=== PATIENT | male | born 1930 | race Caucasian/White ===

== ENCOUNTER 2016-10-25 14:54 | Inpatient (IN) | payer OTHER ==
--- NOTE | 2016-10-25 16:09 | RAD ---
INDICATION: Short of breath COMPARISON: February 27, 2016 TECHNIQUE: An AP portable view obtained at 1438 hours is submitted. FINDINGS: Bones/Soft Tissues: There are no acute bony findings. There is sternotomy. There is a left-sided cardiac pacemaker Cardiomediastinal: The heart is normal in size. The central pulmonary vessels and interstitium are prominent compatible with interstitial congestion. There may be a component of chronic change. Lungs: There are no infiltrates. Pleura: There are no pleural effusions. Other: None IMPRESSION: MILD TO MODERATE VASCULAR CONGESTIVE FINDINGS. NO ACUTE CHANGE.
[2016-10-25 16:46] LABS: Hematocrit 33 % (42-52); Hemoglobin 10.2 g/dl (14.0-18.0); Mean Corpuscular HGB Conc 31 g/dl (31-36); Mean Corpuscular Hemoglobin 24 pg (27-31); Mean Corpuscular Volume 75 fL (80-94); Mean Platelet Volume 8 um3 (7.4-10.4); Red Blood Count 4.33 10^6/ul (4.0-5.4); Red Cell Distribution Width 17 % (10.5-15); White Blood Count 23.6 10^3/ul (3.5-10.8)
[2016-10-25 16:49] LABS: Comments Flag Yes
[2016-10-25 16:50] LABS: Add Diff/Slide Review? Slide Review Added
[2016-10-25 16:51] LABS: Albumin 3.4 g/dL (3.2-5.2); BUN/Creatinine Ratio 25.7 (8-20); Calcium 8.7 mg/dL (8.6-10.3); EGFR African American 82.7 (>60); EGFR Non-African American 64.3 (>60); Globulin 3.2 g/dL (2-4); Total Protein 6.6 g/dL (6.4-8.9)
[2016-10-25 16:54] LABS: Troponin I 0.05 ng/mL (<0.04)
[2016-10-25] MEDS ORDERED: Iohexol 350* (CONTRAST) 500 ML MDV IV ONE (17:05)
--- NOTE | 2016-10-25 17:38 | RAD ---
INDICATION: Chest pain. Short of breath. Evaluate for pulmonary embolus. COMPARISON: CT chest August 21, 2016 TECHNIQUE: Axial source images were obtained from the thoracic inlet to the hemidiaphragms following administration of 80 mL cc Omnipaque 350. CT angiographic technique was utilized. Coronal and sagittal reconstructed images were acquired. CHEST FINDINGS: Neck/thyroid: The visualized neck to include the thyroid appear normal. Chest wall: There are no acute abnormalities of the bony thorax or chest wall. There is sternotomy. There is a left-sided cardiac pacemaker There is no supraclavicular, infraclavicular, or axillary lymphadenopathy. Lungs : There are chronic interstitial changes. There are new, superimposed acute bilateral infiltrates most prominent in the right lung base. There are no endobronchial lesions. Cardiomediastinal structures: There is no CT evidence of acute pulmonary embolic disease. The heart is normal in size. There is no pericardial effusion. There is no evidence of aortic aneurysm or dissection. There is no mediastinal or hilar adenopathy. The esophagus appears normal. Pleura : There is a moderate sized left-sided pleural effusion which appears new. Other: There is a large hiatal hernia. There are numerous hepatic cysts as previously described. IMPRESSION: 1. No CT evidence of acute pulmonary embolic disease. 2. New, bilateral, interstitial infiltrates. Superimposed chronic interstitial changes. 3. New moderate sized left-sided effusion 4. Large hiatal hernia 5. Cardiac pacemaker with sternotomy. 6. Hepatic cysts.
[2016-10-25] MEDS ORDERED: cefTRIAXone(*) 1 GM in NS 0.9% 50 ML* 50 ML IVPB ONE (18:06)
[2016-10-25] MEDS ORDERED: Azithromycin IV(*) 500 MG in NS 0.9% 250 ML* 250 ML IVPB ONE (18:06)
[2016-10-25] MEDS ORDERED: Acetaminophen TAB* 325 MG PO ONE (18:08)
[2016-10-25] MEDS ORDERED: Aspirin TAB* 325 MG PO ONE (18:09)
[2016-10-25] MEDS: Mometasone/Formoter 200/5 MDI INH SCH (21:00)
[2016-10-25] MEDS: Memantine TAB* 10 MG PO SCH (23:11)
[2016-10-25] MEDS: Heparin VIAL(*) 5000 UNITS/ML VIAL (FIVE THOUSAND) SUBCUT SCH (23:17)
[2016-10-25] MEDS: NS 0.9% 1000 ML* 1,000 ML IV SCH (23:24)
--- NOTE | 2016-10-26 03:07 | HP ---
HISTORY AND PHYSICAL: DATE OF ADMISSION: 10/25/16 PRIMARY CARE PROVIDER: Vinicio Butler MD ATTENDING PHYSICIAN: Matteo Castro MD *(dictated by Christal Silverio NP ). CHIEF COMPLAINT: Cough, shortness of breath and low oxygen saturations. HISTORY OF PRESENT ILLNESS: Mr. Merino is an 86-year-old male with past medical history significant for atrial fibrillation, hypertension, coronary artery disease, hypothyroidism, aortic stenosis, status post bioprosthetic aortic valve replacement, cerebrovascular accident, chronic obstructive pulmonary disease, dementia and idiopathic pulmonary fibrosis. He came to the ER today after his reports coming home defined him short of breath, shaking and with low oxygen saturations. She reports that over the last 10 days, he has had a cough. She states that he has intermittently had a cough off and on, and it had gotten better after being placed on prednisone in September and as they tapered down, he again developed a cough and was placed back on prednisone. According to the patient's , Hina, he was shaking, complaining of shortness of breath when she got home for lunch today. She found that his oxygen saturation was 75% on 3 L, his normal home O2 level when he was coughing and when he was not coughing, his oxygen saturation was 85%. She reports that he has felt warmth to the touch, but she has not checked his fever at home. He has reported chills, denies chest discomfort, nausea, vomiting diarrhea, but also reports burping and indigestion. The patient follows closely with Dr. Caputo due to his pulmonary fibrosis. The patient's also reports red tinged sputum. They were recently at a family gathering. They do not believe that there were any sick contacts at that time. As far as the patient's is aware, he has not gained any weight, though she does not check his weight frequently at home. Due to the concern, the patient was brought to the emergency room for further evaluation of his symptoms. While in the emergency room, the patient received ceftriaxone and azithromycin normal. The patient had labs that were significant for white blood cell count of 23.6, BUN is 28. He has a slightly elevated troponin at 0.05. BNP of 374. The patient had a chest x-ray showing [id number] vascular congestion, congestive findings. No acute change. He had a chest CTA showing no CT evidence for an acute pulmonary embolic disease. New bilateral interstitial infiltrates superimposed over chronic interstitial changes. New moderate sized left-sided effusion. Large hiatal hernia. PAST MEDICAL HISTORY: 1. Atrial fibrillation. 2. Hypertension. 3. CAD. 4. Hypothyroidism. 5. Aortic stenosis. 6. Cerebrovascular accident. 7. COPD. 8. Dementia. 9. Idiopathic pulmonary fibrosis. PAST SURGICAL HISTORY: 1. Status post aortic valve replacement with bioprosthetic valve with a 2- vessel CABG. 2. Hernia repair. 3. Total hip arthroplasty. 4. Dual-chamber pacemaker insertion. HOME MEDICATIONS: Include; 1. Spiriva 1 capsule inhalation daily. 2. Testosterone 40.5 mg topical daily. 3. Sertraline 50 mg oral daily. 4. Exelon 6 mg oral twice daily. 5. Prednisone 10 mg oral daily. 6. Prilosec 20 mg oral daily. 7. Metoprolol succinate 12.5 mg oral daily. 8. Namenda 10 mg oral twice daily. 9. Loratadine 10 mg oral daily as needed for allergy symptoms. 10. Levothyroxine 100 mcg oral every morning. 11. Ibuprofen 400 mg oral twice daily as needed for pain. 12. Advair Diskus 250/50 one puff inhalation twice daily. 13. Jess 180 mg oral daily as needed for allergy symptoms. 14. Digoxin 0.125 mg oral daily. 15. CoQ10, 200 mg oral daily. 16. Aspirin 81 mg oral daily. ALLERGIES: RAMIPRIL and ARICEPT. FAMILY HISTORY: The patient's mother had a history of cerebrovascular accident. The patient's father had a history of COPD. He denied any family history of coronary artery disease or diabetes mellitus. The patient's brother had a history of testicular cancer. SOCIAL HISTORY: The patient is a former smoker, he quit smoking cigarettes in 1974. At that time, he had smoked since he was 15 years old. The patient then went to smoking cigars occasionally. He has not smoked in a few years. The patient drinks a glass of wine daily. Denies recreational drug use. He is a retired professor. He is and lives with his , Hina Beltran, who will be his surrogate decision maker in the event that he is unable to make decisions for himself. REVIEW OF SYSTEMS: The patient has a documented fever in the emergency room of 102.6. He has had no significant weight changes. Denies nocturnal dyspnea or orthopnea. I performed a 14-point of review of systems. All the pertinent positives and negatives are mentioned in the history of present illness. The remaining review of systems are negative. PHYSICAL EXAMINATION GENERAL APPEARANCE: The patient is alert, pleasant, and appears to be in no acute distress. VITAL SIGNS: Temperature 102.6, heart rate 97, respiratory rate 18, O2 sat 97% on 3 L via nasal cannula, blood pressure 128/63. HEENT: Normocephalic, atraumatic. Pupils are equal and reactive to light. Extraocular movements are intact. NECK: Supple. There is no lymphadenopathy noted. RESPIRATORY: There is no accessory muscle use. The lungs have some rhonchi bilateral. There is no wheezing. There is no accessory muscle use. CARDIOVASCULAR: Regular rate and rhythm. S1 and S2 present. Tachycardic. ABDOMEN: Soft, nontender and nondistended. There are bowel sounds present x4. EXTREMITIES: There is no lower extremity edema. DP and PT pulses are 2+ and symmetric. MUSCULOSKELETAL: There is no clubbing or cyanosis noted. The patient exhibits good strength in all extremities. NEUROLOGICAL: The patient is alert and oriented to person, but he is confused with the place and time. 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 Tongue is midline. There are no gross neurological defects. Speech is clear. SKIN: Grossly intact. The patient does have some redness to his upper torso that is nonblanchable. DIAGNOSTIC STUDIES/LAB DATA: Sodium 137, potassium 4.0, chloride 103, CO2 27, BUN 28, creatinine 1.09, glucose 95. White blood cell count 23.6, hemoglobin 10.2, hematocrit 33, platelet count 145. Troponin 0.05, BNP 374. EKG shows an atrial fibrillation with a rate of 105. The patient has T-wave inversions in leads V3 to V6 with ST depression. These appear to be new when compared to previous EKG from 02/28/16. Chest x-ray from today. Radiologist impression: [id number] vascular congestive findings. No acute change. CTA of the chest from today. Radiologist's impression: No CT evidence for acute pulmonary embolic disease. New bilateral interstitial infiltrates. Superimposed chronic interstitial changes. New moderate size left-sided effusion. Large hiatal hernia. Cardiac pacemaker with sternotomy. Hepatic cysts. IMPRESSION: Mr. Merino is an 86-year-old male who presented to the emergency room today with complaints of shortness of breath, hypoxia, and cough. He will be admitted as an inpatient for pneumonia. 1. Community-acquired pneumonia. Based on the patient's CT findings, he has bilateral interstitial infiltrates superimposed over his chronic interstitial changes. The patient is currently meeting SIRS criteria for sepsis with tachycardia, tachypnea, fever and elevated white blood cell count. His qSOFA score, he received 1 point for tachypnea. At this time, the patient will be continued on ceftriaxone and azithromycin. He had blood cultures drawn in the emergency room. We will check a sputum culture and urine for Legionella and S. pneumoniae. We will give the patient gentle IV hydration with his history of fluid overload in the past. The patient does not have wheezing. I do not believe that he needs increase in steroids at this time. 2. Elevated troponin. The patient denies chest discomfort. I suspect this could be related to demand ischemia, but he does have some ischemic changes on his EKG today. We will trend his troponins and monitor him on telemetry. He is already on aspirin and beta-john. 3. Atrial fibrillation. The patient is currently in atrial fibrillation. According to the EKG today, his rate is controlled. We will continue his metoprolol and digoxin. I do note that the patient is currently on anticoagulation for his atrial fibrillation. 4. Hypertension. The patient will be continued on his metoprolol. 5. History of coronary artery disease. He will be continued on his aspirin and beta-john. He is not currently on a statin and we will check fasting lipids in the morning. 6. Chronic obstructive pulmonary disease and idiopathic pulmonary fibrosis. The patient does not appear to be in exacerbation at this time. We will continue his Spiriva, Advair and prednisone. 7. Hypothyroidism. The patient will be continued on his home levothyroxine. His last TSH from February 2016 was 2.87. 8. History of cerebrovascular accident. The patient will continue secondary prevention. 9. History of dementia. Supportive care. The patient will be continued on his Namenda and Exelon. 10. Fluids, electrolytes, and nutrition. The patient will be on a heart healthy diet. 11. Code status. Full code. 12. DVT prophylaxis. The patient is at highest risk and will be on subcu heparin and will have SCDs. 13. Disposition. Inpatient with the length of the stay estimated to be 2 to 3 days. TIME SPENT: Time for this admission was 60 minutes and greater than half of that was spent [id number] with the patient and his discussing medications , past medical history and the events leading up to their arrival today and performing a physical examination. The case has been reviewed with the attending, Dr. Castro, who agrees with the plan of care. Reviewed by WHITNEY PERDOMO 10/29/161951 CC: Vinicio Butler MD* [id number]/[facility] #: [id number] MTDD
[2016-10-26] MEDS: Levothyroxine TAB* 100 MCG TAB PO SCH (05:11)
[2016-10-26] MEDS: Heparin VIAL(*) 5000 UNITS/ML VIAL (FIVE THOUSAND) SUBCUT SCH ×3 (05:13→20:30)
[2016-10-26 05:28] LABS: Urine Bacteria Absent (Absent); Urine Bilirubin Negative (Negative); Urine Glucose Negative (Negative); Urine Nitrite Negative (Negative)
[2016-10-26 06:47] LABS: Hematocrit 28 % (42-52); Hemoglobin 8.6 g/dl (14.0-18.0); Mean Corpuscular HGB Conc 31 g/dl (31-36); Mean Corpuscular Hemoglobin 23 pg (27-31); Mean Corpuscular Volume 75 fL (80-94); Mean Platelet Volume 8 um3 (7.4-10.4); Red Blood Count 3.68 10^6/ul (4.0-5.4); Red Cell Distribution Width 17 % (10.5-15); White Blood Count 17.3 10^3/ul (3.5-10.8)
[2016-10-26 06:55] LABS: HDL Cholesterol 56.3 mg/dL
[2016-10-26] MEDS: Mometasone/Formoter 200/5 MDI INH SCH ×2 (08:17→19:41)
[2016-10-26] MEDS: Tiotropium CAP.INH* CAP.INH/18 MCG INH SCH (08:17)
[2016-10-26] MEDS ORDERED: Spiriva Inhaler DEVICE* 1 EACH DEVICE INH ONE (09:00)
[2016-10-26] MEDS: Sertraline* 50 MG TAB PO SCH (09:33)
[2016-10-26] MEDS: Digoxin TAB* 0.125 MG PO SCH (09:33)
[2016-10-26] MEDS: Omeprazole CAP* 20 MG PO SCH (09:33)
[2016-10-26] MEDS: predniSONE TAB* 5 MG PO SCH (09:33)
[2016-10-26] MEDS: Aspirin Low Dose CHEW TAB* 81 MG PO SCH (09:33)
[2016-10-26] MEDS: Memantine TAB* 10 MG PO SCH ×2 (09:33→20:28)
[2016-10-26] MEDS: Metoprolol Succinate XL TAB* 25 MG PO SCH (09:34)
[2016-10-26] MEDS: RIVASTIGMINE 3 MG PO SCH ×2 (09:34→20:53)
[2016-10-26 13:02] LABS: Troponin I 0.07 ng/mL (<0.04)
[2016-10-26] MEDS: Acetaminophen TAB* 325 MG PO PRN (14:11)
[2016-10-26] MEDS: NS 0.9% 1000 ML* 1,000 ML IV SCH (14:11)
--- NOTE | 2016-10-26 16:47 | PN ---
Subjective Date of Service: 10/26/16 Interval History: This is an 86 yo gentleman with a history significant for COPD with chronic O2, afib, and dementia who was brought in for evaluation by his after having significant shortness of breath and cough at home. His reports an O2 sat of 75% while on his home O2 of 3L. Today, he reports feeling much better. His agrees that he looks much improved. He is at his baseline breathing pattern, denying any increased SOB. He denies CP and his reports that he has never c/o chest pain. He is being weaned down to his home O2 level. He is tolerating food. Patient encouraged to walk and get OOB to chair. No other concerns expressed by patient or his . No nursing concerns at this time. Family History: Unchanged from Admission Social History: Unchanged from Admission Past Medical History: Unchanged from Admission Objective Active Medications: Acetaminophen (Tylenol Tab*) 650 mg PO Q4H PRN PRN Reason: FEVER/PAIN Last Admin: 10/26/16 14:11 Dose: 650 mg Aspirin (Aspirin Low Dose Tab*) 81 mg PO DAILY [facility] Last Admin: 10/26/16 09:33 Dose: 81 mg Digoxin (Lanoxin Tab*) 0.125 mg PO DAILY [facility] Last Admin: 10/26/16 09:33 Dose: 0.125 mg Heparin Sodium (Porcine) (Heparin Vial(*)) 5,000 units SUBCUT Q8HR [facility] Last Admin: 10/26/16 14:11 Dose: 5,000 units Sodium Chloride (Ns 0.9% 1000 Ml*) 1,000 mls @ 75 mls/hr IV PER RATE [facility] Last Admin: 10/26/16 14:11 Dose: 75 mls/hr Ceftriaxone Sodium 1,000 mg/ (Sodium Chloride) 50 mls @ 200 mls/hr IVPB Q24H [facility] Azithromycin 500 mg/ Sodium (Chloride) 250 mls @ 250 mls/hr IVPB Q24H [facility] Levothyroxine Sodium (Synthroid Tab*) 100 mcg PO DAILY@0600 [facility] Last Admin: 10/26/16 05:11 Dose: 100 mcg Memantine (Namenda Tab*) 10 mg PO BID [facility] Last Admin: 10/26/16 09:33 Dose: 10 mg Metoprolol Succinate (Toprol Xl Tab*) 12.5 mg PO DAILY [facility] Last Admin: 10/26/16 09:34 Dose: 12.5 mg Mometasone Furoate/Formoterol Fumar (Dulera 200/5 Mdi*) 2 puff INH BID [facility] Last Admin: 10/26/16 08:17 Dose: 2 puff Omeprazole (Prilosec Cap*) 20 mg PO DAILY@0730 [facility] Last Admin: 10/26/16 09:33 Dose: 20 mg Prednisone (Deltasone Tab*) 10 mg PO DAILY WITH MEAL [facility] Last Admin: 10/26/16 09:33 Dose: 10 mg Rivastigmine Tartrate (Exelon (Nf)) 6 mg PO BID [facility] Last Admin: 10/26/16 09:34 Dose: Not Given Sertraline HCl (Zoloft*) 50 mg PO DAILY [facility] Last Admin: 10/26/16 09:33 Dose: 50 mg Tiotropium [place] (Spiriva Cap.Inh*) 1 cap INH DAILY [facility] Last Admin: 10/26/16 08:17 Dose: 1 cap.inh Vital Signs 10/25/16 10/26/16 10/26/16 21:37 00:50 03:22 Temperature 98.0 F 97.5 F 98.6 F Pulse Rate 82 80 72 Respiratory 24 20 20 Rate Blood Pressure 109/52 105/65 124/75 (mmHg) O2 Sat by Pulse 98 98 100 Oximetry 10/26/16 10/26/16 10/26/16 04:55 07:16 07:21 Temperature 98.6 F 98.0 F Pulse Rate 72 79 Respiratory 20 20 18 Rate Blood Pressure 124/75 141/68 (mmHg) O2 Sat by Pulse 100 97 Oximetry 10/26/16 10/26/16 10/26/16 07:22 09:33 11:42 Temperature 98.3 F Pulse Rate 80 82 Respiratory 18 24 Rate Blood Pressure 127/56 (mmHg) O2 Sat by Pulse 100 Oximetry 10/26/16 15:24 Temperature 97.4 F Pulse Rate 80 Respiratory 20 Rate Blood Pressure 128/71 (mmHg) O2 Sat by Pulse 99 Oximetry Oxygen Devices in Use Now: Nasal Cannula - 3Lnc Appearance: Pleasant, elderly male, lying in bed, NAD Eyes: PERRLA Ears/Nose/Mouth/Throat: Mucous Membranes Moist Neck: NL Appearance and Movements; NL JVP Respiratory: Symmetrical Chest Expansion and Respiratory Effort, Clear to Auscultation Cardiovascular: NL Sounds; No Murmurs; No JVD, - - irregular rate/rhythm Abdominal: NL Sounds; No Tenderness; No Distention Extremities: No Edema, No Clubbing, Cyanosis Skin: No Rash or Ulcers Neurological: - - Alert, oriented to self, forgetful place, time Lines/Tubes/Other Access: Clean, Dry and Intact Peripheral IV Nutrition: Taking PO's Result Diagrams: 10/26/16 06:25 10/25/16 16:18 Microbiology and Other Data: Microbiology 10/26/16 12:30 Gram Stain - Final Sputum 10/26/16 02:27 Legionella Urinary Antigen - Final Urine Negative Legionella Streptococcus pneumoniae Ag Screen - Final Negative S. pneumo Antigen Assess/Plan/Problems-Billing Assessment: Mr. Merino is an 86 yo male with a PMH of afib, HTN, CAD, COPD on chronic O2, dementia, hypothyroidism, , CVA, and pulmonary fibrosis who presented to the ED on 10/25 with concern for hypoxemia, cough, and SOB that is secondary to CAP. - Patient Problems (1) Community acquired pneumonia Code(s): J18.9 - PNEUMONIA, UNSPECIFIED ORGANISM Comment: Tmax 102.6 last evening WBC trending down Continue ceftriaxone and azithromycin. Sputum culture pending Legionella and s. pnuemo antigens negative Patient meets sepsis criteria with qSOFA of 1 and SIRS criteria of tachycardia, tachypnea, hypoxia, fever and leukocytosis. (2) Elevated troponin Code(s): R74.8 - ABNORMAL LEVELS OF OTHER SERUM ENZYMES Comment: Troponin has reached plateau of 0.07 Patient continues to deny chest pain. Suspect demand ischemia in the presence of hypoxemia at home secondary to CAP EKG ischemic changes improved on repeat EKG Recheck trop in AM (3) Afib Code(s): I48.91 - UNSPECIFIED ATRIAL FIBRILLATION Comment: Rate controlled. Continue digoxin and metoprolol. Not on chronic anticoagulation (4) CAD (coronary artery disease) Code(s): I25.10 - ATHSCL HEART DISEASE OF [place] CORONARY ARTERY W/O ANG PCTRS Comment: Stable Continue ASA and beta john. (5) COPD (chronic obstructive pulmonary disease) Code(s): J44.9 - CHRONIC OBSTRUCTIVE PULMONARY DISEASE, UNSPECIFIED Comment: Stable Continue albuterol PRN, Dulera, and Spiriva. (6) HTN (hypertension) Code(s): I10 - ESSENTIAL (PRIMARY) HYPERTENSION Comment: Normotensive Continue metoprolol. (7) Dementia Code(s): F03.90 - UNSPECIFIED DEMENTIA WITHOUT BEHAVIORAL DISTURBANCE Comment : Continue rivastigmine and memantine. Supportive care (8) Hypothyroid Code(s): E03.9 - HYPOTHYROIDISM, UNSPECIFIED Comment: Continue levothyroxine. (9) History of CVA (cerebrovascular accident) Code(s): Z86.73 - PRSNL HX OF TIA (TIA), AND CEREB INFRC W/O RESID DEFICITS Comment: Continue ASA (10) DVT prophylaxis Code(s): OFU7028 - Comment: SQ heparin Status and Disposition: Inpatient admission. Anticipate 2-3 days LOS.
[2016-10-26] MEDS ORDERED: cefTRIAXone VIAL(*) 1,000 MG in NS 0.9% 50 ML* 50 ML IVPB SCH (18:00)
[2016-10-26] MEDS ORDERED: Azithromycin IV(*) 500 MG in NS 0.9% 250 ML* 250 ML IVPB SCH (20:00)
[2016-10-27] MEDS: NS 0.9% 1000 ML* 1,000 ML IV SCH (05:13)
[2016-10-27] MEDS: Levothyroxine TAB* 100 MCG TAB PO SCH (05:16)
[2016-10-27] MEDS: Heparin VIAL(*) 5000 UNITS/ML VIAL (FIVE THOUSAND) SUBCUT SCH ×3 (05:18→20:52)
[2016-10-27] MEDS: Acetaminophen TAB* 325 MG PO PRN (06:16)
[2016-10-27 06:38] LABS: Hematocrit 28 % (42-52); Hemoglobin 8.8 g/dl (14.0-18.0); Mean Corpuscular HGB Conc 31 g/dl (31-36); Mean Corpuscular Hemoglobin 24 pg (27-31); Mean Corpuscular Volume 76 fL (80-94); Mean Platelet Volume 8 um3 (7.4-10.4); Red Blood Count 3.74 10^6/ul (4.0-5.4); Red Cell Distribution Width 17 % (10.5-15); White Blood Count 14.2 10^3/ul (3.5-10.8)
[2016-10-27 06:55] LABS: BUN/Creatinine Ratio 23.2 (8-20); Calcium 8.4 mg/dL (8.6-10.3); EGFR African American 96.9 (>60); EGFR Non-African American 75.3 (>60); Potassium 3.6 mmol/L (3.5-5.0)
[2016-10-27] MEDS: Tiotropium CAP.INH* CAP.INH/18 MCG INH SCH (07:15)
[2016-10-27] MEDS: Mometasone/Formoter 200/5 MDI INH SCH ×2 (07:15→20:53)
[2016-10-27 07:16] LABS: Troponin I 0.06 ng/mL (<0.04)
[2016-10-27] MEDS: predniSONE TAB* 5 MG PO SCH (07:21)
[2016-10-27] MEDS: Metoprolol Succinate XL TAB* 25 MG PO SCH (07:21)
[2016-10-27] MEDS: Memantine TAB* 10 MG PO SCH ×2 (07:21→20:52)
[2016-10-27] MEDS: Sertraline* 50 MG TAB PO SCH (07:21)
[2016-10-27] MEDS: Aspirin Low Dose CHEW TAB* 81 MG PO SCH (07:21)
[2016-10-27] MEDS: Omeprazole CAP* 20 MG PO SCH (07:21)
[2016-10-27] MEDS: Digoxin TAB* 0.125 MG PO SCH (07:21)
[2016-10-27] MEDS: RIVASTIGMINE 3 MG PO SCH ×3 (07:23→20:52)
--- NOTE | 2016-10-27 10:10 | RAD ---
Indication: Shortness of breath. Single frontal view of the chest performed at 0641 hours was reviewed. Comparison is made with previous exam dated October 25, 2016. Increasing right basilar and right upper lobe infiltrate when compared to previous exam. Cardiomegaly is noted. Increasing airspace disease is noted. IMPRESSION: INCREASING PNEUMONIA IN THE RIGHT UPPER LOBE AND RIGHT BASE.
--- NOTE | 2016-10-27 11:13 | PN ---
Subjective Date of Service: 10/27/16 Interval History: This is a gentleman admitted for CAP. Nursing notes indicate that approx. 0550 this AM, the patient was found to have HR in 120s, described a feeling of being hot and c/o SOB. He was noted to have hypoxia and tachypnea that resolved with increased O2 and repositioning. Soda Tester was notified and CXR wsa performed. At the time of my assessment, the patient's VS are stable and he is OOB to chair and very interactive. His is in the room. He denies chest pain, feeling short of breath, abd pain, n/v. He has been weaned down to 5L but is still currently using the oxymask. Family History: Unchanged from Admission Social History: Unchanged from Admission Past Medical History: Unchanged from Admission Objective Active Medications: Acetaminophen (Tylenol Tab*) 650 mg PO Q4H PRN PRN Reason: FEVER/PAIN Last Admin: 10/27/16 06:16 Dose: 650 mg Aspirin (Aspirin Low Dose Tab*) 81 mg PO DAILY [facility] Last Admin: 10/27/16 07:21 Dose: 81 mg Digoxin (Lanoxin Tab*) 0.125 mg PO DAILY [facility] Last Admin: 10/27/16 07:21 Dose: 0.125 mg Heparin Sodium (Porcine) (Heparin Vial(*)) 5,000 units SUBCUT Q8HR [facility] Last Admin: 10/27/16 05:18 Dose: 5,000 units Sodium Chloride (Ns 0.9% 1000 Ml*) 1,000 mls @ 75 mls/hr IV PER RATE [facility] Last Admin: 10/27/16 05:13 Dose: 75 mls/hr Ceftriaxone Sodium 1,000 mg/ (Sodium Chloride) 50 mls @ 200 mls/hr IVPB Q24H [facility] Last Admin: 10/26/16 17:39 Dose: 200 mls/hr Azithromycin 500 mg/ Sodium (Chloride) 250 mls @ 250 mls/hr IVPB Q24H [facility] Last Admin: 10/26/16 20:41 Dose: 250 mls/hr Levothyroxine Sodium (Synthroid Tab*) 100 mcg PO DAILY@0600 [facility] Last Admin: 10/27/16 05:16 Dose: 100 mcg Memantine (Namenda Tab*) 10 mg PO BID [facility] Last Admin: 10/27/16 07:21 Dose: 10 mg Metoprolol Succinate (Toprol Xl Tab*) 12.5 mg PO DAILY [facility] Last Admin: 10/27/16 07:21 Dose: 12.5 mg Mometasone Furoate/Formoterol Fumar (Dulera 200/5 Mdi*) 2 puff INH BID [facility] Last Admin: 10/27/16 07:15 Dose: 2 puff Omeprazole (Prilosec Cap*) 20 mg PO DAILY@0730 [facility] Last Admin: 10/27/16 07:21 Dose: 20 mg Prednisone (Deltasone Tab*) 10 mg PO DAILY WITH MEAL [facility] Last Admin: 10/27/16 07:21 Dose: 10 mg Rivastigmine Tartrate (Exelon (Nf)) 6 mg PO BID [facility] Last Admin: 10/27/16 09:36 Dose: 6 mg Sertraline HCl (Zoloft*) 50 mg PO DAILY [facility] Last Admin: 10/27/16 07:21 Dose: 50 mg Tiotropium Boaz (Spiriva Cap.Inh*) 1 cap INH DAILY [facility] Last Admin: 10/27/16 07:15 Dose: 1 cap.inh Vital Signs 10/26/16 10/26/16 10/26/16 11:42 15:24 19:59 Temperature 98.3 F 97.4 F 97.4 F Pulse Rate 82 80 86 Respiratory 24 20 20 Rate Blood Pressure 127/56 128/71 123/68 (mmHg) O2 Sat by Pulse 100 99 96 Oximetry 10/26/16 10/27/16 10/27/16 20:00 00:11 03:45 Temperature 97.9 F 98.9 F Pulse Rate 91 88 Respiratory 20 20 20 Rate Blood Pressure 130/76 114/96 (mmHg) O2 Sat by Pulse 95 92 Oximetry 10/27/16 10/27/16 10/27/16 05:50 06:17 06:43 Temperature 100 F 100.9 F Pulse Rate 84 84 Respiratory 36 28 18 Rate Blood Pressure 212/105 168/95 (mmHg) O2 Sat by Pulse 94 95 Oximetry 10/27/16 10/27/16 07:20 07:21 Temperature 99.9 F Pulse Rate 97 100 Respiratory 20 Rate Blood Pressure 162/85 (mmHg) O2 Sat by Pulse 98 Oximetry Oxygen Devices in Use Now: Nasal Cannula - 3Lnc Appearance: Pleasant, elderly male, NAD Eyes: PERRLA Ears/Nose/Mouth/Throat: Clear Oropharnyx Neck: NL Appearance and Movements; NL JVP Respiratory: Symmetrical Chest Expansion and Respiratory Effort, - - diminished lungs, no wheezing appreciated, fair aeration Cardiovascular: NL Sounds; No Murmurs; No JVD, RRR Abdominal: NL Sounds; No Tenderness; No Distention Extremities: No Edema Skin: No Rash or Ulcers Neurological: - - Alert, oriented to self, situation, place, disoriented to time Lines/Tubes/Other Access: Clean, Dry and Intact Peripheral IV Nutrition: Taking PO's Result Diagrams: 10/27/16 06:06 10/27/16 06:06 Microbiology and Other Data: Microbiology 10/26/16 12:30 Gram Stain - Final Sputum 10/26/16 02:27 Legionella Urinary Antigen - Final Urine Negative Legionella Streptococcus pneumoniae Ag Screen - Final Negative S. pneumo Antigen Assess/Plan/Problems-Billing Assessment: Mr. Merino is an 86 yo male with a PMH of afib, HTN, CAD, COPD on chronic O2, dementia, hypothyroidism, , CVA, and pulmonary fibrosis who presented to the ED on 10/25 with concern for hypoxemia, cough, and SOB that is secondary to CAP. - Patient Problems (1) Community acquired pneumonia Code(s): J18.9 - PNEUMONIA, UNSPECIFIED ORGANISM Comment: 100.9 this AM with hypoxia and SOB CXR shows increase pneumonia, episode may be secondary to poor ventilation from CAP and chronic lung disease WBC trending down Continue ceftriaxone and azithromycin. Sputum culture pending Legionella and s. pnuemo antigens negative Patient meets sepsis criteria with qSOFA of 1 and SIRS criteria of tachycardia, tachypnea, hypoxia, fever and leukocytosis. (2) Elevated troponin Code(s): R74.8 - ABNORMAL LEVELS OF OTHER SERUM ENZYMES Comment: Troponin has reached plateau of 0.07 Patient continues to deny chest pain. Suspect demand ischemia in the presence of hypoxemia at home secondary to CAP EKG ischemic changes improved on repeat EKG (3) Afib Code(s): I48.91 - UNSPECIFIED ATRIAL FIBRILLATION Comment: Rate controlled. Continue digoxin and metoprolol. Not on chronic anticoagulation (4) CAD (coronary artery disease) Code(s): I25.10 - ATHSCL HEART DISEASE OF [place] CORONARY ARTERY W/O ANG PCTRS Comment: Stable Continue ASA and beta john. (5) COPD (chronic obstructive pulmonary disease) Code(s): J44.9 - CHRONIC OBSTRUCTIVE PULMONARY DISEASE, UNSPECIFIED Comment: Stable Continue albuterol PRN, Dulera, and Spiriva. (6) HTN (hypertension) Code(s): I10 - ESSENTIAL (PRIMARY) HYPERTENSION Comment: Normotensive Continue metoprolol. (7) Dementia Code(s): F03.90 - UNSPECIFIED DEMENTIA WITHOUT BEHAVIORAL DISTURBANCE Comment : Continue rivastigmine and memantine. Supportive care (8) Hypothyroid Code(s): E03.9 - HYPOTHYROIDISM, UNSPECIFIED Comment: Continue levothyroxine. (9) History of CVA (cerebrovascular accident) Code(s): Z86.73 - PRSNL HX OF TIA (TIA), AND CEREB INFRC W/O RESID DEFICITS Comment: Continue ASA (10) DVT prophylaxis Code(s): ROG8240 - Comment: SQ heparin Status and Disposition: Inpatient admission. Anticipate 3-5 day LOS.
--- NOTE | 2016-10-27 15:07 | PN ---
Hospitalist Progress Note CAT response called for patient secondary to increased RR, hypoxia. Patient noted to have increased work of breathing and decreased O2 sat. Patient transferred to ICU for closer monitoring and Vapotherm. Patient's , Hina called. She arrived at the hospital. She states that the patient previously completed a living will that indicates no mechanical ventilation. This was discussed with Dr. Wagner. CXR ordered. Transfer of care to clinical abstractor.
--- NOTE | 2016-10-27 15:25 | RAD ---
Indication: Shortness of breath. Single frontal view of the chest performed at 1514 hours was reviewed. Comparison is made with previous exam dated October 27, 2016 earlier the same day. Right upper lobe, right lower lobe and left lung airspace disease appears to have progressed since exam done earlier the same day. IMPRESSION: PROGRESSION OF AIRSPACE DISEASE ESPECIALLY IN THE LEFT UPPER LOBE.
[2016-10-27] MEDS ORDERED: Famotidine TAB* 20 MG PO ONE (15:31)
[2016-10-27] MEDS ORDERED: NS 0.9% 1000 ML* 1,000 ML IV SCH ×2 (15:32→15:53)
--- NOTE | 2016-10-27 15:42 | PN ---
Critical Care Services: 86 yo patient hsopitalized for community-acquired pneumonia (Rx ceftriaxone and azithromycin) brought to ICU because of hypoxia and respiratory distress, which resolved after starting high-flow, humidified nasal O2 (vapotherm). CXR shows slight worsening of bilateral infiltrates. Vital Signs: Temp Pulse Resp BP SpO2 FiO2 98.2 F 85 40 137/56 100 100 Physical Exam: Gen:Awake and responds to verbal commands. Lungs: Crackles bilaterally L>R. Cardiac: Reg rhythm. No murmurs or rubs. Abdomen: Not distended. Extremities:Warm. No cyanosis or edema. Neuro: Apparent rigors of upper extremities. Fluid Balance (Past 24 Hours): 10/27/16 06:59 Intake Total 3340 Output Total 900 Balance +2440 Weight Intake: IV Fluids 1989 NS 1989 IVPB 260 ABX - AZITHROMYCIN 260 Oral 1090 Output: Urine 900 Other: # Bowel Movements 0 # Voids 1 Labs: 10/27/16 10/27/16 06:06 06:06 WBC 14.2 H Hgb 8.8 L Hct 28 L Plt Count 120 L Sodium 137 Potassium 3.6 Chloride 105 Carbon Dioxide 24 Anion Gap 8 BUN 22 Creatinine 0.95 Glucose 99 Troponin I 0.06 H* Studies: CXR: As mentioned, bilateral infiltrates, slightly worse than last x-ray. Nutrition: oral diet Impression: Bilateral. progressive, pneumonia - appears more interstitial than alveolar on the CXR. No pathogen identified at this time (and unlikely one will be identified). Plan: I will broaden antibiotic coverage and try a diuretic. Otherwise, management will remain the same. This patient is DNR, per living will (according to his ). Patient's at the bedside, and was informed of present Dx and Rx. Critical Care Time: 45 minutes.
[2016-10-27] MEDS ORDERED: Furosemide IV* 10 MG/ML VIAL (40 MG) IV ONE (15:52)
[2016-10-27] MEDS ORDERED: Piperac/Tazob 3.375 gm in NS* 3.375 GM/100 ML BAG IVPB ONE (16:00)
[2016-10-27] MEDS ORDERED: Furosemide IV* 10 MG/ML VIAL (40 MG) ONE (16:08)
[2016-10-27] MEDS: Piperac/Tazob 3.375 gm in NS* 3.375 GM/100 ML BAG IVPB SCH (20:04)
[2016-10-28] MEDS ORDERED: Morphine INJ* 2 MG/ML 1 ML SYRINGE ONE (00:02)
[2016-10-28] MEDS: Morphine INJ* 2 MG/ML 1 ML SYRINGE IV PRN ×4 (00:05→21:56)
[2016-10-28] MEDS ORDERED: Morphine INJ* 4 MG/ML 1 ML SYRINGE IV ONE (02:44)
[2016-10-28] MEDS ORDERED: Morphine INJ* 4 MG/ML 1 ML SYRINGE ONE (02:48)
[2016-10-28] MEDS: Piperac/Tazob 3.375 gm in NS* 3.375 GM/100 ML BAG IVPB SCH ×3 (03:49→20:10)
[2016-10-28] MEDS: Heparin VIAL(*) 5000 UNITS/ML VIAL (FIVE THOUSAND) SUBCUT SCH ×3 (05:51→21:01)
[2016-10-28] MEDS: Levothyroxine TAB* 100 MCG TAB PO SCH (05:52)
[2016-10-28] MEDS: Mometasone/Formoter 200/5 MDI INH SCH ×2 (07:39→20:32)
[2016-10-28] MEDS: Tiotropium CAP.INH* CAP.INH/18 MCG INH SCH (07:40)
[2016-10-28] MEDS: predniSONE TAB* 5 MG PO SCH (07:53)
[2016-10-28] MEDS: Digoxin TAB* 0.125 MG PO SCH (07:53)
[2016-10-28] MEDS: Sertraline* 50 MG TAB PO SCH (07:53)
[2016-10-28] MEDS: Aspirin Low Dose CHEW TAB* 81 MG PO SCH (07:53)
[2016-10-28] MEDS: Famotidine TAB* 20 MG PO SCH (07:54)
[2016-10-28] MEDS: RIVASTIGMINE 3 MG PO SCH (07:54)
[2016-10-28] MEDS: Metoprolol Succinate XL TAB* 25 MG PO SCH (07:54)
[2016-10-28] MEDS: Memantine TAB* 10 MG PO SCH ×2 (08:37→20:08)
--- NOTE | 2016-10-28 15:54 | PN ---
Critical Care Services: Better today - on high-flow nasal O2 Vital Signs: Temp Pulse Resp BP SpO2 FiO2 99.8 F 94 23 131/73 88 100 Physical Exam: Gen:Alert - answers questions Lungs:crackles both bases posteriorly Extremities:No cyanosis or edema Fluid Balance (Past 24 Hours): 10/28/16 06:59 Intake Total 3558 Output Total 1650 Balance +1908 Weight 174 lb 2.6oz Intake: IV Fluids 1278 NS 1278 IVPB 120 ABX - AZITHROMYCIN ABX - PIPERACILLIN NS 120 Oral 2160 Output: Urine 1650 Other: # Bowel Movements # Voids 2 Studies: All cultures negative to date. Nutrition: Oral diet. Impression: Severe gas exchange abnormality (presumably from pneumonia) continues. No pathogen isolated. Plan: Continue present management, and taper inhaled O2 when (and if) possible
[2016-10-28] MEDS: Acetaminophen TAB* 325 MG PO PRN (16:26)
[2016-10-28] MEDS: CMCS Rivastigmine CAP(NF) 1.5 MG CAP PO SCH (20:59)
[2016-10-29] MEDS: Acetaminophen TAB* 325 MG PO PRN (01:29)
[2016-10-29] MEDS: Morphine INJ* 2 MG/ML 1 ML SYRINGE IV PRN ×4 (01:29→23:34)
[2016-10-29] MEDS: Piperac/Tazob 3.375 gm in NS* 3.375 GM/100 ML BAG IVPB SCH ×3 (03:52→19:54)
[2016-10-29] MEDS: Levothyroxine TAB* 100 MCG TAB PO SCH (05:50)
[2016-10-29] MEDS: Heparin VIAL(*) 5000 UNITS/ML VIAL (FIVE THOUSAND) SUBCUT SCH ×3 (05:50→21:19)
[2016-10-29] MEDS: CMCS Rivastigmine CAP(NF) 1.5 MG CAP PO SCH ×2 (07:31→20:33)
[2016-10-29] MEDS: Famotidine TAB* 20 MG PO SCH (07:32)
[2016-10-29] MEDS: Memantine TAB* 10 MG PO SCH ×2 (07:32→20:33)
[2016-10-29] MEDS: Aspirin Low Dose CHEW TAB* 81 MG PO SCH (07:32)
[2016-10-29] MEDS: Sertraline* 50 MG TAB PO SCH (07:32)
[2016-10-29] MEDS: Metoprolol Succinate XL TAB* 25 MG PO SCH (07:32)
[2016-10-29] MEDS: Digoxin TAB* 0.125 MG PO SCH (07:32)
[2016-10-29] MEDS: predniSONE TAB* 5 MG PO SCH (07:32)
[2016-10-29] MEDS: Mometasone/Formoter 200/5 MDI INH SCH ×2 (07:49→19:52)
[2016-10-29] MEDS: Tiotropium CAP.INH* CAP.INH/18 MCG INH SCH (07:50)
[2016-10-29 09:50] LABS: Hematocrit 27 % (42-52); Hemoglobin 8.4 g/dl (14.0-18.0); Mean Corpuscular HGB Conc 31 g/dl (31-36); Mean Corpuscular Hemoglobin 24 pg (27-31); Mean Corpuscular Volume 75 fL (80-94); Mean Platelet Volume 8 um3 (7.4-10.4); Red Blood Count 3.59 10^6/ul (4.0-5.4); Red Cell Distribution Width 17 % (10.5-15); White Blood Count 15.1 10^3/ul (3.5-10.8)
[2016-10-29 09:59] LABS: Comments Flag Yes
--- NOTE | 2016-10-29 17:31 | PN ---
Critical Care Services: Fever last night, but no other change in clinical status - continues to need high-dose O2. Vital Signs: Temp Pulse Resp BP SpO2 FiO2 100.0 F 86 24 119/78 92 100 Physical Exam: Gen:Alert, in no distress Lungs:crackles both bases Extremities:No cyanosis or edema. Fluid Balance (Past 24 Hours): 10/29/16 06:59 Intake Total 1823 Output Total 830 Balance +993 Weight 170 lb 10oz Intake: IV Fluids 43 NS 43 IVPB 620 ABX - AZITHROMYCIN ABX - PIPERACILLIN 211 NS 409 Oral 1160 Output: Urine 830 Other: # Bowel Movements # Voids Labs: 10/29/16 09:34 WBC 15.1 Hgb 8.4 Hct 27 Plt Count 138 NOTE: WBC count basically the same as on 10/27. Studies: None today Nutrition: Oral diet Impression: New fever - ?significance. Patient is currently on PIP/TAZO, and I will not add antibiotics unless fever recurrs. Plan: Culture blood and respiratory secretions. Taper inhaled O2 if possible.
[2016-10-30] MEDS: Piperac/Tazob 3.375 gm in NS* 3.375 GM/100 ML BAG IVPB SCH (03:32)
[2016-10-30] MEDS: Morphine INJ* 2 MG/ML 1 ML SYRINGE IV PRN ×5 (03:45→22:56)
[2016-10-30] MEDS: Albuterol 2.5 MG/3 ML NEB.SOL* (0.083%) INH PRN (03:49)
[2016-10-30] MEDS: Levothyroxine TAB* 100 MCG TAB PO SCH (06:25)
[2016-10-30] MEDS: Heparin VIAL(*) 5000 UNITS/ML VIAL (FIVE THOUSAND) SUBCUT SCH ×2 (06:25→14:35)
[2016-10-30] MEDS: Mometasone/Formoter 200/5 MDI INH SCH ×2 (08:25→20:11)
[2016-10-30] MEDS: Tiotropium CAP.INH* CAP.INH/18 MCG INH SCH (08:25)
[2016-10-30] MEDS: predniSONE TAB* 5 MG PO SCH (09:06)
[2016-10-30] MEDS: Memantine TAB* 10 MG PO SCH (09:06)
[2016-10-30] MEDS: Famotidine TAB* 20 MG PO SCH (09:07)
[2016-10-30] MEDS: Aspirin Low Dose CHEW TAB* 81 MG PO SCH (09:07)
[2016-10-30] MEDS: Sertraline* 50 MG TAB PO SCH (09:07)
[2016-10-30] MEDS: Digoxin TAB* 0.125 MG PO SCH (09:07)
[2016-10-30] MEDS: Metoprolol Succinate XL TAB* 25 MG PO SCH (09:08)
[2016-10-30] MEDS: CMCS Rivastigmine CAP(NF) 1.5 MG CAP PO SCH (09:10)
[2016-10-30] MEDS ORDERED: Furosemide IV* 10 MG/ML VIAL (40 MG) IV ONE (10:00)
[2016-10-30] MEDS ORDERED: Morphine ORAL CONCENTRATE* 5 MG/0.25 ML ORAL.SYRIN SL PRN (14:08)
--- NOTE | 2016-10-30 16:55 | PN ---
Progress Note - Progress Note Note: Patient continues to require high-flow O2, and attempts to reduce inhaled O2 have been unsuccessful. There is no evidence of active infection or heart failure; i.e., there is nothing to correct to improve the clinical situation. palliative care has been consulted, and I have spoken to the about " comfort measures" care. In the meantime, the patient remains on high-flow O2, to maintain O2 sats in above 90%. The prognosis here is very poor. I will speak to the again tomorrow about placing the patient on comfort measures, and removing the high-flow O2.
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
[2016-10-30] MEDS ORDERED: Heparin VIAL(*) 5000 UNITS/ML VIAL (FIVE THOUSAND) SUBCUT SCH (21:00)
[2016-10-31] MEDS: Morphine INJ* 2 MG/ML 1 ML SYRINGE IV PRN ×5 (03:07→13:33)
[2016-10-31] MEDS: Albuterol 2.5 MG/3 ML NEB.SOL* (0.083%) INH PRN ×2 (03:19→05:26)
[2016-10-31] MEDS: Levothyroxine TAB* 100 MCG TAB PO SCH (06:03)
[2016-10-31] MEDS ORDERED: Morphine INJ* 2 MG/ML 1 ML SYRINGE IV ONE (06:07)
[2016-10-31] MEDS ORDERED: Morphine INJ* 2 MG/ML 1 ML SYRINGE ONE (06:12)
[2016-10-31] MEDS: Tiotropium CAP.INH* CAP.INH/18 MCG INH SCH (07:38)
[2016-10-31] MEDS: Mometasone/Formoter 200/5 MDI INH SCH (07:38)
[2016-10-31] MEDS ORDERED: Morphine INJ* 2 MG/ML 1 ML SYRINGE IV PRN (14:04)
[2016-10-31] MEDS ORDERED: Morphine PCA ADULT* 5 MG/ML 30 ML PCA SCH (16:00)
[2016-10-31] MEDS ORDERED: Morphine INJ* 10 MG/ML 1 ML SYRINGE IV ONE (16:00)
[2016-10-31] MEDS ORDERED: LORazepam INJ* 2 MG/ML 1 ML VIAL IV PUSH ONE (16:00)
--- NOTE | 2016-10-31 16:13 | PN ---
Critical Care Services: Patient remains on high-flow oxygen, and is not doing well - he has had several episodes of marked O2 desaturation (to < 70%) from just moving around in bed. I spoke with the about end-of-life care; i.e., starting a morphine infusion and removing the oxygen therapy. She has agreed to this, but wants the daughter to come in to visit with the patient. In the meantime, we are giving small doses of IV morphine to relieve the patient's sense of dyspnea. Vital Signs: Temp Pulse Resp BP SpO2 FiO2 101.3 F 89 34 140/74 82 100 10/31/16 15:51 10/31/16 14:00 10/31/16 14:00 10/31/16 13:00 10/31/16 14:00 10/31 08:00 Physical Exam: Gen: HEENT: Lungs: Cardiac: Abdomen: Extremities: Neuro: Fluid Balance (Past 24 Hours): I= O= Net Intake & Output 10/29/16 10/30/16 10/31/16 11/01/16 06:59 06:59 06:59 06:59 Intake Total 1823 1209 1083 360 Output Total 830 800 975 350 Balance 993 409 108 10 Weight 170 lb 10.205 oz 170 lb 8 oz Intake: IV Fluids 43 115 143 0 NS 43 115 143 0 IVPB 620 174 ABX - PIPERACILLIN 211 100 NS 409 74 Oral 1160 920 940 360 Output: Urine 830 800 975 350 Other: Estimated Void Medium # Bowel Movements 1 Estimated Stool Amount Medium # Voids 1 ADLs: Meal Record Start: 10/25/16 20: 37 Freq: DAILY@0900,1400,1800 Status: Complete Document 10/26/16 09:00 [id number] (Rec: 10/26/16 11:15 [id number] TELE-C11) Document 10/26/16 13:47 [id number] (Rec: 10/26/16 13:50 [id number] TELE-C11) Document 10/26/16 18:00 [id number] (Rec: 10/26/16 18:44 [id number] TELE-C01) Document 10/27/16 09:00 [id number] (Rec: 10/27/16 12:25 [id number] TELE-C09) Document 10/27/16 14:00 [id number] (Rec: 10/27/16 14:46 [id number] TELE-C09) ADLs: Meal Record Start: 10/27/16 15: 20 Freq: 09,13,18 Status: Active Created 10/27/16 15:20 [id number] (Rec: 10/27/16 15:20 [id number] ICU-M21) Document 10/27/16 18:00 [id number] (Rec: 10/27/16 19:40 [id number] ICU-C15) Document 10/28/16 09:31 [id number] (Rec: 10/28/16 09:32 [id number] ICU-C10) Document 10/28/16 13:00 OQR1053 (Rec: 10/28/16 13:39 [id number] ICU-C15) Document 10/28/16 18:00 [id number] (Rec: 10/28/16 18:37 [id number] ICU-C15) Document 10/29/16 09:00 [id number] (Rec: 10/29/16 09:28 [id number] ICU-C25) Document 10/29/16 13:00 [id number] (Rec: 10/29/16 13:46 [id number] ICU-C15) Document 10/29/16 18:00 RMQ8419 (Rec: 10/29/16 21:01 [id number] ICU-C15) Document 10/30/16 09:00 [id number] (Rec: 10/30/16 10:16 [id number] ICU-C15) Document 10/30/16 13:00 [id number] (Rec: 10/30/16 14:07 [id number] ICU-C15) Document 10/30/16 18:00 [id number] (Rec: 10/30/16 20:03 MZK1552 ICU-C15) Document 10/31/16 09:00 [id number] (Rec: 10/31/16 12:24 [id number] ICU-C15) Document 10/31/16 13:00 [id number] (Rec: 10/31/16 14:30 [id number] ICU-C15) Intake and Output Start: 10/25/16 20: 37 Freq: DAILY@0600,1400,2200 Status: Complete Document 10/26/16 13:47 [id number] (Rec: 10/26/16 13:50 [id number] TELE-C11) Document 10/26/16 22:00 [id number] (Rec: 10/26/16 22:44 KMY7353 TELE-C33) Document 10/27/16 05:32 KBQ0483 (Rec: 10/27/16 05:32 PCJ6387 TELE-C34) Document 10/27/16 14:00 ASI3454 (Rec: 10/27/16 14:46 [id number] TELE-C09) Intake and Output Start: 10/27/16 15: 20 Freq: 06,14,22 Status: Active Created 10/27/16 15:20 [id number] (Rec: 10/27/16 15:20 [id number] ICU-M21) Document 10/27/16 16:48 [id number] (Rec: 10/27/16 16:49 [id number] ICU-C12) Document 10/27/16 20:59 [id number] (Rec: 10/27/16 20:59 JFM0953 ICU-C14) Document 10/27/16 21:01 [id number] (Rec: 10/27/16 21:01 [id number] ICU-M21) Document 10/27/16 22:37 ZJB2601 (Rec: 10/27/16 22:43 VZX2265 ICU-C14) Document 10/27/16 23:56 ULF0069 (Rec: 10/27/16 23:57 [id number] ICU-C14) Document 10/28/16 00:50 TBF1438 (Rec: 10/28/16 00:50 IJS0000 ICU-C14) Document 10/28/16 02:08 [id number] (Rec: 10/28/16 02:08 [id number] ICU-C15) Document 10/28/16 02:39 NHQ8918 (Rec: 10/28/16 02:39 [id number] ICU-C14) Document 10/28/16 06:00 [id number] (Rec: 10/28/16 06:16 [id number] ICU-C15) Document 10/28/16 11:57 [id number] (Rec: 10/28/16 11:57 [id number] ICU-C25) Document 10/28/16 14:00 KKA0693 (Rec: 10/28/16 14:04 [id number] ICU-C15) Document 10/28/16 22:00 [id number] (Rec: 10/28/16 22:18 [id number] ICU-C14) Document 10/29/16 01:35 [id number] (Rec: 10/29/16 01:35 [id number] ICU-C14) Document 10/29/16 02:50 [id number] (Rec: 10/29/16 02:50 OWY9119 ICU-C15) Document 10/29/16 05:52 [id number] (Rec: 10/29/16 05:53 PEU5068 ICU-M21) Document 10/29/16 08:00 OAG3659 (Rec: 10/29/16 09:41 [id number] ICU-M21) Document 10/29/16 13:46 YML1218 (Rec: 10/29/16 13:46 [id number] ICU-C15) Document 10/29/16 16:23 [id number] (Rec: 10/29/16 16:23 YWM0763 ICU-C15) Document 10/29/16 17:46 [id number] (Rec: 10/29/16 17:47 [id number] ICU-C20) Document 10/29/16 22:00 AQA4966 (Rec: 10/29/16 22:39 [id number] ICU-C15) Document 10/30/16 01:15 USK5128 (Rec: 10/30/16 01:15 [id number] ICU-C15) Document 10/30/16 06:00 NIH4547 (Rec: 10/30/16 06:30 ZWA3499 ICU-M21) Document 10/30/16 09:10 [id number] (Rec: 10/30/16 09:10 [id number] [facility]-RDC2) Document 10/30/16 10:16 JCF1991 (Rec: 10/30/16 16:16 [id number] ICU-C15) Document 10/30/16 11:43 EFX5014 (Rec: 10/30/16 11:44 CIY7095 ICU-M20) Document 10/30/16 14:00 YRM3662 (Rec: 10/30/16 14:50 [id number] [facility]-RDC2) Document 10/30/16 22:00 FYJ8311 (Rec: 10/30/16 22:34 [id number] ICU-C15) Document 10/31/16 06:00 [id number] (Rec: 10/31/16 06:15 KWG6157 ICU-M07) Document 10/31/16 14:00 [id number] (Rec: 10/31/16 14:26 [id number] ICU-C15) Plan: Critical Care Time:
[2016-10-31] MEDS ORDERED: LORazepam INJ* 2 MG/ML 1 ML VIAL IV PUSH PRN (17:15)
[2016-10-31] MEDS ORDERED: Acetaminophen IV 1GM/100ML * 1,000 MG in PREMIX* 0 ML IVPB PRN (17:50)
[2016-10-31] MEDS ORDERED: Morphine INJ* 10 MG/ML 1 ML SYRINGE IV PRN (18:17)
[2016-10-31 19:19] VITALS: BP 145/91
--- NOTE | 2016-10-31 19:37 | PN ---
Progress Note - Progress Note Note: Palliative care follow up note Patient seen with and daughter who just arrived. Patient just woke up and was interactive. Family very tearful. They were waiting for a friend to arrive. Did not feel quite ready to let him go. Follow up with Dr. Wagner.
--- NOTE | 2016-11-01 11:46 | DS ---
DISCHARGE SUMMARY: DATE OF ADMISSION: 10/25/16 DATE : 10/31/16 HOSPITAL COURSE: This patient is an 86-year-old white male with a prior history of atrial fibrillation, hypertension, coronary artery disease, hypothyroidism, status post bioprosthetic aortic valve replacement, cerebrovascular accident, COPD, dementia, and idiopathic pulmonary fibrosis, who was admitted with respiratory failure secondary to a presumed community- acquired pneumonia. The patient was placed on antibiotics and admitted to the general medical service; however, on approximately 2 days following admission, the patient developed severe hypoxemia and was brought to the intensive care unit. On admission to the intensive care unit, the patient was placed on high flow humidified nasal O2 with correction of hypoxemia and nothing further was considered necessary at that time. Antibiotic coverage was broadened after admission to the ICU, and the patient initially did well; however, he subsequently developed progressive increase in A-a pO2 gradient and that was unresponsive to diuresis or the broadened antibiotic coverage. Because the patient experienced episodes of severe desaturation (O2 sats down into the 70% range), which were accompanied by severe respiratory distress. The patient's was informed that there was nothing further that could be done, and the option of comfort measures care was discussed (the patient was DNR/DNI, per a living will). The agreed to such, and on 10/31/16, in the late afternoon, the patient was started on a morphine infusion, and was removed from supplemental oxygen. He was pronounced at 6:55 PM on 10/31/16. FINAL DIAGNOSES: Progressive pneumonia, unresponsive to antibiotics in a patient with chronic obstructive pulmonary disease and idiopathic pulmonary fibrosis. The patient's was present at the bedside at the time of -autopsy was declined. [id number]/[facility] #: [id number] [facility] SYSTEMGladys
== END 2016-10-31 18:55 | disposition expired | DRG 871 ==
LOC: ED 14:54 → MEDTELE 19:57 → ICU 10-27 14:52
PROVIDERS: ADMIT Internal Medicine; ATTEND Internal Medicine Critical Care Medicine
DX: A41.9 Sepsis, unspecified organism (principal); J18.9 Pneumonia, unspecified organism; J96.21 Acute and chronic respiratory failure with hypoxia; J44.0 Chronic obstructive pulmonary disease with (acute) lower respiratory infection; F01.50 Vascular dementia, unspecified severity, without behavioral disturbance, psychotic disturbance, mood disturbance, and anxiety; J84.112 Idiopathic pulmonary fibrosis; I48.91 Unspecified atrial fibrillation; I10 Essential (primary) hypertension; I25.10 Atherosclerotic heart disease of native coronary artery without angina pectoris; E03.9 Hypothyroidism, unspecified; R79.89 Other specified abnormal findings of blood chemistry; Z96.649 Presence of unspecified artificial hip joint; Z66 Do not resuscitate; Z95.3 Presence of xenogenic heart valve; Z99.81 Dependence on supplemental oxygen; Z86.73 Personal history of transient ischemic attack (TIA), and cerebral infarction without residual deficits; Z95.0 Presence of cardiac pacemaker; Z88.8 Allergy status to other drugs, medicaments and biological substances; Z82.3 Family history of stroke; Z82.5 Family history of asthma and other chronic lower respiratory diseases; Z83.3 Family history of diabetes mellitus; Z80.43 Family history of malignant neoplasm of testis; Z87.891 Personal history of nicotine dependence; Z95.1 Presence of aortocoronary bypass graft
CPT/HCPCS: 36415; 71010; 71275; 80048; 80053; 80061; 81003; 81015; 83605; 83880; 84484; 85025; 85027; 87040; 87070; 87205; 87899; 93005; 94002; 94640; 94760; A9270-GY; J0456; J0696; J1644; J1940; J2060; J2270; J2543; J7512; Q9967